=== PATIENT | male | born 1955 | race African-American/Black ===

== ENCOUNTER 2018-01-13 14:18 | Emergency (ER) | payer MEDICARE, MEDICAID ==
[~2018-01-13] VITALS: Ht 172.7 cm; Wt 65.3 kg
[~2018-01-13 14:18] MED LIST: METFORMIN HCL1000 M1 ORAL; METFORMIN HCL850 M1 ORAL; NORCO 5-325 TA1 EACH ORAL; ZOLPIDEM TARTRAT5 MG ORAL
--- NOTE | 2018-01-13 15:10 | Emergency Room Report ---
History of Present Illness General Chief Complaint: Skin Rash/Abscess Source: Patient Present Illness HPI 62 YO Male presents to the ED c/o 01/10 in severity pain, swelling, and erythema of right posterior shoulder x 2 days. He reports that he attempted to pop it himself however he was unsuccessful. Patient denies fevers or chills he reports he has a history of diabetes and takes insulin as well as metformin. Patient states that he is up-to-date with his tetanus vaccinations. Denies lesions elsewhere on the body. Allergies: Coded Allergies: No Known Allergies (Unverified , 09/22/13) Patient History Past Medical History: see triage record Past Surgical History: none Pertinent Family History: none Immunizations: UTD Reviewed Nursing Documentation: PMH: Agreed; PSxH: Agreed Nursing Documentation-PMH Past Medical History: No History, Except For Hx Cardiac Problems: No Hx Hypertension: No Hx Diabetes: Yes Hx Cancer: No Hx Gastrointestinal Problems: No Hx Neurological Problems: No Review of Systems All Other Systems: negative except mentioned in HPI Physical Exam Vital Signs Date Time Temp Pulse Resp B/P (MAP) Pulse Ox O2 Delivery O2 Flow Rate FiO2 01/13/18 14:39 98.7 76 20 144/87 98 Room Air 98.8 Sp02 EP Interpretation: reviewed, normal General Appearance: no apparent distress, alert, GCS 15, non-toxic Head: normocephalic, atraumatic ENT: hearing grossly normal, normal voice Neck: full range of motion Respiratory: chest non-tender, lungs clear, normal breath sounds, speaking full sentences Cardiovascular #1: regular rate, rhythm Musculoskeletal: back normal, gait/station normal, normal range of motion, non- tender Neurologic: alert, oriented x3, responsive, motor strength/tone normal, sensory intact, normal gait, speech normal, grossly normal Psychiatric: judgement/insight normal Skin: normal color, no rash, warm/dry, well hydrated, other - Posterior right shoulder abscess 1.5cm with palpable fluctuance, erythema and induration. Procedures Incision and Drainage Incision and Drainage : Consent: Verbal Site: Posterior right shoulder I & D Procedure: betadine prep, sterile drapes applied, sterile dressing applied, gauze wick placed Wound Location: other - Posterior right shoulder abscess 1.5cm with palpable fluctuance Wound's Depth, Shape: superficial Wound Length (cm): 1 Wound Explored: contaminated - Thick purulent d/c expressed Anesthesia: 1% Lidocaine Volume Anesthetic (ccs): 1 Splint Applied?: No Sling Applied?: No Patient Tolerated: Well Complications: None Medical Decision Making PA Attestation Dr. brown is my supervising Physician whom patient management has been discussed with. Diagnostic Impression: Primary Impression: Abscess ER Course 62 YO Male presents to the ED c/o 01/10 in severity pain, swelling, and erythema of right posterior shoulder x 2 days. He reports that he attempted to pop it himself however he was unsuccessful. Patient denies fevers or chills he reports he has a history of diabetes and takes insulin as well as metformin. Patient states that he is up-to-date with his tetanus vaccinations. Denies lesions elsewhere on the body. Ddx considered but are not limited to cellulitis, abscess, cystic acne, necrotizing fasciitis, insect bite. Vital signs: are WNL, pt. is afebrile H&PE are most consistent with Posterior right shoulder abscess 1.5cm with palpable fluctuance. ORDERS: none required at this time, the diagnosis is clinical ED INTERVENTIONS: -I & D. DISCHARGE: At this time pt. is stable for d/c to home. Will provide printed patient care instructions, and any necessary prescriptions. Care plan and follow up instructions have been discussed with the patient prior to discharge. Last Vital Signs Date Time Temp Pulse Resp B/P (MAP) Pulse Ox O2 Delivery O2 Flow Rate FiO2 01/13/18 14:39 98.7 76 20 144/87 98 Room Air 98.8 Scripts Clindamycin Hcl (CLINDAMYCIN HCL) 300 Mg Capsule 300 MG ORAL TID for 7 Days, #21 CAP Prov: Kesha Younger 01/13/18 Patient Instructions: Abscess Additional Instructions: Take medications as directed. Follow up with a Primary Care Provider in 3-5 days, even if your symptoms have resolved. --Please review list of primary care clinics, if you do not already have a primary care provider Return sooner to ED if new symptoms occur, or current symptoms become worse. - Please note that this Emergency Department Report was dictated using [employer] furnace keeper technology software, occasionally this can lead to erroneous entry secondary to interpretation by the dictation equipment. Kesha Younger January 13, 2018 15:10
[2018-01-13 15:26] VITALS: BP 144/87
[2018-01-13] MEDS ORDERED: CLINDAMYCIN HC300 MG ORAL (15:50)
[2018-01-13 16:06] VITALS: BP 144/87
== END 2018-01-13 16:15 | disposition home or self-care (01) ==
LOC: EMR 16:15
DX: L02.413 Cutaneous abscess of right upper limb (principal); E11.9 Type 2 diabetes mellitus without complications
CPT/HCPCS: 10060; 99283

== ENCOUNTER 2020-11-01 11:15 | Inpatient (IN) | payer MEDICAID, MEDICARE, OTHER ==
[~2020-11-01] VITALS: Ht 172.7 cm; Wt 63.5 kg
[~2020-11-01 11:15] MED LIST changes: +CLINDAMYCIN HC300 MG ORAL
[2020-11-01] MEDS ORDERED: Omnipaque-300 100ml vial INJ PRN (12:45)
[2020-11-01 13:24] VITALS: BP 148/66
[2020-11-01 13:40] LABS: APPEARANCE,URINE CLEAR; BILIRUBIN, URINE NEGATIVE (NEGATIVE); COLOR,URINE PALE YELLOW; GLUCOSE, URINE (UA) 4+ (NEGATIVE); KETONES,URINE NEGATIVE (NEGATIVE); LEUKOCYTE ESTERASE ,URINE NEGATIVE (NEGATIVE); NITRITE,URINE NEGATIVE (NEGATIVE); PH,URINE 5 (4.5-8.0); PROTEIN,URINE 2+ (NEGATIVE); UROBILINOGEN,URINE NORMAL MG/DL (0.0-1.0)
[2020-11-01 13:45] LABS: BASOPHILS % (AUTO) 1.3 % (0.0-2.0); EOSINOPHILS % (AUTO) 0.2 % (0.0-3.0); HEMATOCRIT 41.1 % (42.0-52.0); HEMOGLOBIN 12.7 G/DL (14.2-18.0); MEAN CORPUSCULAR VOLUME 88 FL (80-99); MONOCYTES % (AUTO) 8.9 % (1.0-10.0); NEUTROPHILS % (AUTO) 71.6 % (45.0-75.0); PLATELET COUNT 338 K/UL (150-450); RED BLOOD COUNT 4.67 M/UL (4.70-6.10); RED CELL DISTRIBUTION WIDTH 14.6 % (11.6-14.8); WHITE BLOOD COUNT 4.9 K/UL (4.8-10.8)
[2020-11-01 13:54] LABS: ANION GAP 10 mmol/L (5-15); BLOOD UREA NITROGEN 26 mg/dL (7-18); CARBON DIOXIDE 25 MMOL/L (21-32); CHLORIDE 105 MMOL/L (98-107); CREATININE 1.1 MG/DL (0.55-1.30); POTASSIUM 4.1 MMOL/L (3.5-5.1); SODIUM 140 MMOL/L (136-145)
[2020-11-01 14:05] LABS: ALANINE AMINOTRANSFERASE 143 U/L (12-78); ALBUMIN 3.6 G/DL (3.4-5.0); ALBUMIN/GLOBULIN RATIO 1.1 (1.0-2.7); ALKALINE PHOSPHATASE 69 U/L (46-116); ASPARTATE AMINO TRANSFERASE 41 U/L (15-37); BILIRUBIN,TOTAL 0.3 MG/DL (0.2-1.0); CALCIUM 9.1 MG/DL (8.5-10.1)
--- NOTE | 2020-11-01 14:44 | Emergency Room Report ---
History of Present Illness General Chief Complaint: Abdominal Pain Source: Patient (Fabiano Hernandez MD) Present Illness HPI 65-year-old male presents for evaluation. States he has been feeling short of breath on and off for a few days. Denies chest pain. Also notes left-sided abdominal pain. Sharp, 7 out of 10 radiating to the back. Has history of hypertension. States he is a diabetic and is compliant with his medications. Denies any history of kidney stones. No other aggravating relieving factors. Denies any other associated symptoms. (Fabiano Hernandez MD) Allergies: Coded Allergies: No Known Allergies (Unverified , 09/22/13) COVID-19 Screening Contact w/high risk pt: No Experienced COVID-19 symptoms?: No COVID-19 Testing performed MIDDLE STITCHER: No (Fabiano Hernandez MD) Patient History Past Medical History: DM Past Surgical History: none Pertinent Family History: none Social History: Denies: smoking, alcohol use, drug use Immunizations: UTD Reviewed Nursing Documentation: PMH: Agreed; PSxH: Agreed (Fabiano Hernandez MD) Nursing Documentation-PMH Hx Cardiac Problems: No Hx Hypertension: No Hx Diabetes: Yes Hx Cancer: No Hx Gastrointestinal Problems: No Hx Neurological Problems: No (Fabiano Hernandez MD) Review of Systems All Other Systems: negative except mentioned in HPI (Fabiano Hernandez MD) Physical Exam Vital Signs Date Time Temp Pulse Resp B/P (MAP) Pulse Ox O2 Delivery O2 Flow Rate FiO2 11/01/20 12:28 98.4 110 18 150/95 (113) 98 Room Air Sp02 EP Interpretation: reviewed, normal General Appearance: no apparent distress, alert, GCS 15, non-toxic Head: normocephalic, atraumatic Eyes: bilateral eye normal inspection, bilateral eye PERRL ENT: hearing grossly normal, normal pharynx, no angioedema, normal voice Neck: full range of motion, supple/symm/no masses Respiratory: chest non-tender, lungs clear, normal breath sounds, speaking full sentences Cardiovascular #1: regular rate, rhythm, no edema Cardiovascular #2: 2+ carotid (R), 2+ carotid (L), 2+ radial (R), 2+ radial (L), 2+ dorsalis pedis (R), 2+ dorsalis pedis (L) Gastrointestinal: normal bowel sounds, soft, non-distended, no guarding, no rebound, tenderness - L sided Rectal: deferred Genitourinary: normal inspection, no CVA tenderness Musculoskeletal: back normal, normal range of motion, gait/station normal, non- tender Neurologic: alert, motor strength/tone normal, oriented x3, sensory intact, responsive, speech normal Psychiatric: judgement/insight normal, memory normal, mood/affect normal, no suicidal/homicidal ideation Reflexes: 3+ bicep (R), 3+ bicep (L), 3+ tricep (R), 3+ tricep (L), 3+ knee (R), 3+ knee (L) Skin: no rash Lymphatic: no adenopathy (Fabiano Hernandez MD) Medical Decision Making Diagnostic Impression: Primary Impression: CHF (congestive heart failure) Additional Impressions: Pleural effusion Anasarca Laboratory Tests Test 11/01/20 13:17 White Blood Count 4.9 K/UL (4.8-10.8) Red Blood Count 4.67 M/UL (4.70-6.10) L Hemoglobin 12.7 G/DL (14.2-18.0) L Hematocrit 41.1 % (42.0-52.0) L Mean Corpuscular Volume 88 FL (80-99) Mean Corpuscular Hemoglobin 27.2 PG (27.0-31.0) Mean Corpuscular Hemoglobin Concent 30.8 G/DL (32.0-36.0) L Red Cell Distribution Width 14.6 % (11.6-14.8) Platelet Count 338 K/UL (150-450) Mean Platelet Volume 7.7 FL (6.5-10.1) Neutrophils (%) (Auto) 71.6 % (45.0-75.0) Lymphocytes (%) (Auto) 18.0 % (20.0-45.0) L Monocytes (%) (Auto) 8.9 % (1.0-10.0) Eosinophils (%) (Auto) 0.2 % (0.0-3.0) Basophils (%) (Auto) 1.3 % (0.0-2.0) Urine Color Pale yellow Urine Appearance Clear Urine pH 5 (4.5-8.0) Urine Specific [place] 1.025 (1.005-1.035) Urine Protein 2+ (NEGATIVE) H Urine Glucose (UA) 4+ (NEGATIVE) H Urine Ketones Negative (NEGATIVE) Urine Blood Negative (NEGATIVE) Urine Nitrite Negative (NEGATIVE) Urine Bilirubin Negative (NEGATIVE) Urine Urobilinogen Normal MG/DL (0.0-1.0) Urine Leukocyte Esterase Negative (NEGATIVE) Urine RBC 0 /HPF (0 - 0) Urine WBC 0-2 /HPF (0 - 0) Urine Squamous Epithelial Cells Occasional /LPF Urine Uric Acid Crystals Moderate /LPF (NONE) H Urine Bacteria Occasional /HPF (NONE) Sodium Level 140 MMOL/L (136-145) Potassium Level 4.1 MMOL/L (3.5-5.1) Chloride Level 105 MMOL/L (98-107) Carbon Dioxide Level 25 MMOL/L (21-32) Anion Gap 10 mmol/L (5-15) Blood Urea Nitrogen 26 mg/dL (7-18) H Creatinine 1.1 MG/DL (0.55-1.30) Estimat Glomerular Filtration Rate > 60 mL/min (>60) Glucose Level 197 MG/DL (74-106) H Calcium Level 9.1 MG/DL (8.5-10.1) Total Bilirubin 0.3 MG/DL (0.2-1.0) Aspartate Amino Transf (AST/SGOT) 41 U/L (15-37) H Alanine Aminotransferase (ALT/SGPT) 143 U/L (12-78) H Alkaline Phosphatase 69 U/L (46-116) Troponin I 0.023 ng/mL (0.000-0.056) Pro-B-Type Natriuretic Peptide 4308 pg/mL (0-125) H Total Protein 6.9 G/DL (6.4-8.2) Albumin 3.6 G/DL (3.4-5.0) Globulin 3.3 g/dL Albumin/Globulin Ratio 1.1 (1.0-2.7) Lipase 66 U/L (73-393) L (Fabiano Hernandez MD) ER Course Assumed care of the patient from the previous provider at approximately 1400. Please refer to initial note for full history and physical exam. Briefly, 65-year-old male complaining of abdominal pain shortness of breath. Labs x-ray consistent with CHF exacerbation which would be a new diagnosis for the patient. CT was pending at the time of signout. CT now shows large bilateral pleural effusions and anasarca. Other findings as noted in CT report. Admitted to Dr. Teresa who is the assigned hospitalist per patient healthcare plan. (Christopher Sultana MD) EKG Diagnostic Results Troponin ordered: Yes Rate: normal Rhythm: NSR ST Segments: no acute changes ASA given to the pt in ED: No (Fabiano Hernandez MD) Rhythm Strip Diag. Results EP Interpretation: yes Rhythm: NSR, no PVC's, no ectopy (Fabiano Hernandez MD) Chest X-Ray Diagnostic Results Chest X-Ray Diagnostic Results : Chest X-Ray Ordered: Yes # of Views/Limited/Complete: 1 View Indication: Shortness of Breath EP Interpretation: Yes Interpretation: no pneumothorax, other - cardiomegaly. interstitial congestion Impression: Other - chf Electronically Signed by: Electronically signed by Fabiano Hernandez MD (Fabiano Hernandez MD) CT/MRI/US Diagnostic Results CT/MRI/US Diagnostic Results : Impression Impression: Limited assessment of the GI tract, due to lack of enteric contrast administration Anasarca, with large bilateral pleural effusions, mild pulmonary edema, mild edema of the subcutaneous, abdominal and pelvic fat Colonic diverticulosis. No evidence of diverticulitis Slight gallbladder wall thickening without gallstones; suspect that this is a manifestation of the anasarca. COPD changes Cardiomegaly Unchanged presumed benign calcified right basilar lung nodule Dictated By: Jim Babcock MD Electronically Signed By:Jim Babcock MD Signed Date/Time11/01/20 1526 CC: Fabinao Hernandez MD (Christopher Sultana MD) Last Vital Signs Date Time Temp Pulse Resp B/P (MAP) Pulse Ox O2 Delivery O2 Flow Rate FiO2 11/01/20 13:24 16 Room Air 11/01/20 13:24 148/66 11/01/20 12:28 98.4 110 98 (Fabiano Hernandez MD) Disposition: ADMITTED INPATIENT Condition: Serious Referrals: [facility],REFERRING (PCP) Fabiano Hernandez MD Nov 01, 2020 14:44 Christopher Sultana MD Nov 01, 2020 15:37
--- NOTE | 2020-11-01 15:30 | Diagnostic Imaging Report ---
Clinical Indication: Left flank pain Technique: No oral contrast utilized, per emergency room physician request IV administration nonionic contrast. Venous phase spiral acquisition obtained through the abdomen and pelvis. Multiplanar reconstructions were generated. Total dose length product 174 mGycm. CTDIvol(s) 3 mGy. Dose reduction achieved using automated exposure control Comparison: none Findings: There is mild anasarca, with diffuse mild edema of the subcutaneous and abdominal fat as well as large bilateral pleural effusions and evidence of some pulmonary edema. This is a new finding since previous study. Lack of enteric contrast limits assessment of the GI tract. The appendix is normal. There are colonic diverticula. There is evidence of some sigmoid circular muscle hypertrophy. No small bowel distention. No free or loculated intraperitoneal gas or fluid is evident. The distal esophagus, stomach, duodenum are unremarkable. There is a small complex ventral hernia that contains only fat The liver is unremarkable. The gallbladder demonstrates slight gallbladder wall edema. The bile ducts are normal in caliber. The pancreatic duct is mildly ectatic. The pancreas is otherwise unremarkable. The spleen, adrenals, kidneys are unremarkable. No retroperitoneal or mesenteric mass or adenopathy. No pelvic mass or adenopathy. As mentioned earlier, there were large bilateral pleural effusions, right greater than left. There are bilateral mostly perihilar infiltrates versus edema, as well as compressive atelectasis of a significant portion of both lower lobes and some small bullae. The heart is enlarged, more so than on the prior study.. The bones are unremarkable for age. Impression: Limited assessment of the GI tract, due to lack of enteric contrast administration Anasarca, with large bilateral pleural effusions, mild pulmonary edema, mild edema of the subcutaneous, abdominal and pelvic fat Colonic diverticulosis. No evidence of diverticulitis Slight gallbladder wall thickening without gallstones; suspect that this is a manifestation of the anasarca. COPD changes Cardiomegaly Unchanged presumed benign calcified right basilar lung nodule The CT scanner at [facility] is accredited by the [employer] and the scans are performed using protocols designed to limit radiation exposure to as low as reasonably achievable to attain images of sufficient resolution adequate for diagnostic evaluation.
--- NOTE | 2020-11-01 18:40 | Diagnostic Imaging Report ---
Indication: Chest pain Technique: One view of the chest Comparison: 07/10/2015 Findings: The heart is borderline enlarged. There is bilateral interstitial and airspace edema and bilateral pleural effusions. Impression: Cardiomegaly Bilateral interstitial and airspace edema and bilateral pleural effusions
[2020-11-01] MEDS: Aspirin Baby 81mg ORAL SCH (19:30)
[2020-11-01] MEDS: Losartan 25mg tab ORAL SCH (19:30)
[2020-11-01] MEDS ORDERED: Nitroglycerin Subl 0.4mg tab SL PRN (19:30)
[2020-11-01] MEDS ORDERED: Milk of Magnesia 30ml Ud ORAL PRN (19:30)
[2020-11-01] MEDS ORDERED: Zolpidem 5mg tab ORAL PRN (19:30)
[2020-11-01] MEDS: Spironolactone 25mg tab ORAL SCH (19:30)
--- NOTE | 2020-11-01 19:30 | NUR ---
ED Nurse Note: pt came in with complaints of abdominal pain/sob, AOx4 ambulatory, xray shows CHF exacerbation, pt admitted to Tele unit report given to RN Ernestina, patient belongings sent with him to floor refused offer to put in hospital safe, belongings form filled and signed by patient,
--- NOTE | 2020-11-01 22:00 | NUR ---
NURSE NOTES: Received patient alert oriented from ED via stretcher accompanied by the nurse. patient walk to bed and place on the monitor. assessment initiated. patient show no signs of distress. no chest pain. patient is diabetic, will check his blood glucose. patient belongings at bedside. discussed plan of care. orient patient to room. call ramirez within reach , will continue to monitor.
[2020-11-01] MEDS: Carvedilol 6.25mg Tab ORAL SCH (22:45)
[2020-11-01] MEDS: Heparin 5000 units/ml inj SUBQ SCH (22:53)
[2020-11-01] MEDS: NovoLOG Insulin Flexpen SUBQ SCH (23:15)
[2020-11-02] VITALS: BP 138/94
[2020-11-02 04:00] VITALS: BP 130/89
[2020-11-02] MEDS: NovoLOG Insulin Flexpen SUBQ SCH ×4 (06:11→20:39)
--- NOTE | 2020-11-02 07:28 | NUR ---
NURSE HAND-OFF REPORT: Important Events on Shift:[] Patient Status: [] Diet: [] Pending Orders: [] Pending Results/Labs:[] Pending MD notification:[] Latest Vital Signs: Temperature 97.4 , Pulse 100 , B/P 130 /89 , Respiratory Rate 20 , O2 SAT 92 , Room Air, O2 Flow Rate . Vital Sign Comment: [] EKG Rhythm: Sinus Tachycardia Rhythm change?: N MD Notified?: - MD Response: Latest Wiley Fall Score: 0 Fall Risk: Low Risk Safety Measures: Call light Within Reach, Bed Alarm , Side Rails Side Rails x2, Bed position . Fall Precautions: Report given to [].
[2020-11-02 07:42] LABS: BASOPHILS % (AUTO) 1.1 % (0.0-2.0); EOSINOPHILS % (AUTO) 0.5 % (0.0-3.0); HEMATOCRIT 41.9 % (42.0-52.0); HEMOGLOBIN 13.3 G/DL (14.2-18.0); LYMPHOCYTES % (AUTO) 20.6 % (20.0-45.0); MEAN CORPUSCULAR VOLUME 87 FL (80-99); MONOCYTES % (AUTO) 9.5 % (1.0-10.0); NEUTROPHILS % (AUTO) 68.4 % (45.0-75.0); PLATELET COUNT 357 K/UL (150-450); RED BLOOD COUNT 4.82 M/UL (4.70-6.10); RED CELL DISTRIBUTION WIDTH 14.7 % (11.6-14.8); WHITE BLOOD COUNT 5.7 K/UL (4.8-10.8)
[2020-11-02 08:00] VITALS: BP 140/91
[2020-11-02 08:06] LABS: BLOOD UREA NITROGEN 32 mg/dL (7-18); CHLORIDE 103 MMOL/L (98-107); CHOLESTEROL 208 MG/DL (< 200); CREATININE 1.3 MG/DL (0.55-1.30); HDL CHOLESTEROL 49 MG/DL (40-60); SODIUM 140 MMOL/L (136-145); TRIGLYCERIDES 61 MG/DL (30-150)
[2020-11-02 08:11] LABS: CALCIUM 9.6 MG/DL (8.5-10.1); CARBON DIOXIDE 27 MMOL/L (21-32)
[2020-11-02 08:15] LABS: ANION GAP 10 mmol/L (5-15)
[2020-11-02] MEDS: Losartan 25mg tab ORAL SCH ×2 (08:56→18:07)
[2020-11-02] MEDS: Carvedilol 6.25mg Tab ORAL SCH (08:56)
[2020-11-02] MEDS: Aspirin Baby 81mg ORAL SCH (08:56)
[2020-11-02] MEDS: Heparin 5000 units/ml inj SUBQ SCH ×2 (08:58→20:39)
[2020-11-02] MEDS: Spironolactone 25mg tab ORAL SCH (09:00)
[2020-11-02 12:00] VITALS: BP 115/82
[2020-11-02] MEDS ORDERED: Insulin NPH SUBQ SCH (14:00)
--- NOTE | 2020-11-02 14:44 | History and Physical Report ---
DATE OF ADMISSION: 11/01/2020 CHIEF COMPLAINT AND REASON FOR HOSPITALIZATION: The patient is a 65-year-old man admitted with shortness of breath and congestive heart failure, vague abdominal pain. There is a history of diabetes since the . He is not aware of heart disease or congestive heart failure but he appeared to be in congestive heart failure. An echo showed LV ejection fraction 20% to 25%, moderate mitral regurgitation, aortic regurgitation, trace to mild tricuspid regurgitation, elevated right ventricular systolic pressure. HABITS: He is a former marijuana user, says he no longer uses. He denies smoking, alcohol, or street drugs at this time. PAST SURGICAL HISTORY: Cataracts in both eyes. HOME MEDICATIONS: Include Lantus 30 units every morning, metformin 850 t.i.d. SYSTEM REVIEW: HEAD, EYES, EARS, NOSE, AND THROAT: There is mild decreased visual acuity. Hearing is good. ENDOCRINE: Diabetes as above. No known thyroid disease. PULMONARY: No history of asthma, TB, or chronic cough. CARDIAC: See history of present illness. GASTROINTESTINAL: No ulcers or GI bleeding. GENITOURINARY: No dysuria, hematuria, or kidney stones. NEUROLOGIC: No CVA or seizures. PHYSICAL EXAMINATION: GENERAL: The patient is alert, well-developed man, in no acute distress, somewhat thin, BMI 21.3. VITAL SIGNS: Temperature 97.2, respiratory rate 18, blood pressure 140/91, pulse ox 98. HEAD, EYES, EARS, NOSE, AND THROAT: Sclerae are nonicteric. Ocular motions intact in all directions. Oral mucosa moist. NECK: No adenopathy or thyroid enlargement. LUNGS: Clear. Decreased breath sounds at the bases. HEART: Rhythm is regular. There is an apical S4. I hear no murmur. ABDOMEN: Soft without organomegaly or masses. No tenderness. EXTREMITIES: No edema, cyanosis, or clubbing. PERTINENT LABORATORY DATA: White count 5.7, hemoglobin of 13.3. Electrolytes normal. BUN 26, creatinine 1.1, glucose . BNP of 4308. Cholesterol 208. TSH 3.155. Troponin 0.023 and 0.027. IMPRESSION: 1. Congestive heart failure, acute on chronic with systolic and diastolic dysfunction. 2. Insulin-dependent diabetes. 3. Mild hypercholesterolemia. 4. Dipstick positive for proteinuria, likely diabetic nephropathy. PLAN: The patient started on diuretics, ARB, Coreg. We will observe with diuresis his clinical course, monitor his diabetes. We will get cardiology opinion. Gabriel Teresa M.D. DR: Kumar JOB#: [id number] CC:
--- NOTE | 2020-11-02 15:40 | Cardiology Report ---
APPROVED REPORT EXAM: Two-dimensional and M-mode echocardiogram with Doppler and color Doppler. INDICATION AMI M-Mode DIMENSIONS IVSd1.1 (0.7-1.1cm)Left Atrium (MM)3.9 (1.6-4.0cm) LVDd6.1 (3.5-5.6cm)Aortic Root3.5 (2.0-3.7cm) PWd1.2 (0.7-1.1cm)Aortic Cusp Exc.2.1 (1.5-2.0cm) IVSs1.1 cmEPSS3.0 (>1.0cm) LVDs6.2 (2.5-4.0cm) PWs1.6 cm <Conclusion> Moderate left ventricular enlargement. Severe global LV hypokinesis Left ventricular ejection fraction estimated to be 20-25 %. No left ventricular hypertrophy. Small posterior pericardial effusion. Mild left atrial enlargement. Right cardiac chamber sizes are within normal limits. Focal aortic valve sclerosis with adequate cusp excursion. Thickened mitral valve leaflets with normal excursion. Mitral annulus and aortic root calcification. Pulmonic valve not well visualized. Normal tricuspid valve structure. IVC at normal size and collapsing with respiration. A color flow and spectral Doppler study was performed and revealed: Trace aortic regurgitation. Moderate mitral regurgitation. Trace to mild tricuspid regurgitation. Tricuspid systolic velocities suggests peak right ventricular systolic pressure of 31 mmHg.
--- NOTE | 2020-11-02 15:47 | Cardiology Report ---
APPROVED REPORT EKG Measurement Heart [id number] <Conclusion> Sinus rhythm with occasional premature ventricular complexes Possible Left atrial enlargement ST & T wave abnormality, consider lateral ischemia Prolonged QT Abnormal ECG
[2020-11-02 16:00] VITALS: BP 120/78
[2020-11-02] MEDS ORDERED: empagliflozin PO (16:30)
[2020-11-02] MEDS ORDERED: GABAPENTIN400 MG ORAL (16:30)
[2020-11-02] MEDS ORDERED: ATORVASTATIN CA20 MG ORAL (16:30)
[2020-11-02] MEDS ORDERED: ASPIRIN EC81 MG ORAL (16:30)
[2020-11-02] MEDS ORDERED: LANTUS SOL100 UNIT/1 SUBQ (16:30)
--- NOTE | 2020-11-02 19:12 | Cardiology Progress Note ---
Subjective DATE OF SERVICE: Nov 02, 2020 Patient notes less SOB today. No Chest Pain Results of 2D Echo discussed; patient states he has never been told of having a weak heart. 2D Echo: LVEF 25% with moderate MR. Objective Last 24 Hour Vital Signs Date Time Temp Pulse Resp B/P (MAP) Pulse Ox O2 Delivery O2 Flow Rate FiO2 11/02/20 18:07 120/78 11/02/20 16:00 92 11/02/20 16:00 97.2 97 20 120/78 (92) 98 11/02/20 12:00 102 11/02/20 12:00 97.5 98 20 115/82 (93) 97 11/02/20 09:00 Room Air 11/02/20 08:56 140/91 11/02/20 08:56 99 140/91 11/02/20 08:00 97.2 100 18 140/91 (107) 98 11/02/20 08:00 99 11/02/20 04:00 97.4 100 20 130/89 (103) 92 11/02/20 04:00 103 11/02/20 00:00 98.6 109 20 138/94 (109) 92 11/02/20 00:00 118 11/01/20 23:00 Room Air 11/01/20 22:45 109 138/94 11/01/20 19:30 148/66 HEENT: normal ENT inspection LUNGS: lungs clear bilaterally CARDIAC: normal rate, regular rhythm, normal S1 and S2, systolic murmur - 2/6 systolic apical murmur, gallop/S4, other - Elev JVP ABDOMEN: normal bowel sounds, non tender, soft, no organomegaly EXTREMITIES: normal range of motion, trace edema Laboratory Tests Test 11/02/20 07:02 11/02/20 11:31 11/02/20 15:55 White Blood Count 5.7 K/UL (4.8-10.8) Red Blood Count 4.82 M/UL (4.70-6.10) Hemoglobin 13.3 G/DL (14.2-18.0) L Hematocrit 41.9 % (42.0-52.0) L Mean Corpuscular Volume 87 FL (80-99) Mean Corpuscular Hemoglobin 27.6 PG (27.0-31.0) Mean Corpuscular Hemoglobin Concent 31.7 G/DL (32.0-36.0) L Red Cell Distribution Width 14.7 % (11.6-14.8) Platelet Count 357 K/UL (150-450) Mean Platelet Volume 6.6 FL (6.5-10.1) Neutrophils (%) (Auto) 68.4 % (45.0-75.0) Lymphocytes (%) (Auto) 20.6 % (20.0-45.0) Monocytes (%) (Auto) 9.5 % (1.0-10.0) Eosinophils (%) (Auto) 0.5 % (0.0-3.0) Basophils (%) (Auto) 1.1 % (0.0-2.0) Sodium Level 140 MMOL/L (136-145) Potassium Level 4.0 MMOL/L (3.5-5.1) Chloride Level 103 MMOL/L (98-107) Carbon Dioxide Level 27 MMOL/L (21-32) Anion Gap 10 mmol/L (5-15) Blood Urea Nitrogen 32 mg/dL (7-18) H Creatinine 1.3 MG/DL (0.55-1.30) Estimat Glomerular Filtration Rate > 60 mL/min (>60) Glucose Level 192 MG/DL (74-106) H Calcium Level 9.6 MG/DL (8.5-10.1) Magnesium Level 1.9 MG/DL (1.8-2.4) Troponin I 0.027 ng/mL (0.000-0.056) Triglycerides Level 61 MG/DL (30-150) Cholesterol Level 208 MG/DL (< 200) H LDL Cholesterol 140 mg/dL (<100) H HDL Cholesterol 49 MG/DL (40-60) Cholesterol/HDL Ratio 4.2 (3.3-4.4) Thyroid Stimulating Hormone (TSH) 3.155 uiU/mL (0.358-3.740) POC Whole Blood Glucose 220 MG/DL (74-106) H 244 MG/DL (74-106) H Microbiology Date/Time Source Procedure Growth Status 11/01/20 15:54 Nasopharynx SARS-CoV-2 Antigen (Rapid)([facility]) - Final Complete Assessment/Plan Assessment/Plan Acute systolic CHF Hypertensive cardiomyopathy Possible component of ischemia NIDDM Diuresis Maximize ACEi rx Add beta roslyn DVT prophylaxis Myocardial perfusion scan as outpatient as part of work up for reversible causes of cardiomyopathy. Fredis Welch MD Nov 02, 2020 19:12
--- NOTE | 2020-11-02 19:45 | NUR ---
NURSE NOTES: Received report from TUYET Zapien. Pt is awake, A/Ox4, no signs of acute distress. SR on clinical research monitor. Respirations are even and unlabored, currently on RA. No complaints of pain. R FA 22g is intact and asymptomatic. Pt steady on feet. Side rails x2, bed locked and in lowest position, call light within reach. Will continue plan of care. Will continue to monitor.
[2020-11-02 20:00] VITALS: BP 111/70
--- NOTE | 2020-11-02 20:29 | Consultation ---
DATE OF CONSULTATION: 11/01/2020 CARDIOLOGY CONSULTATION CONSULTING PHYSICIAN: Fredis Welch MD REFERRING PHYSICIAN: Gabriel Teresa MD REASON FOR CONSULTATION: Acute congestive heart failure. HISTORY OF PRESENT ILLNESS: This is a 65-year-old male with no prior known history of cardiac disease. He does have a known history of diabetes mellitus however and possibly hypertension. He presented to the emergency room earlier this evening with shortness of breath, some difficulty sleeping, and mild abdominal pain. He denied chest pain or palpitations or any recent respiratory condition/illness. PAST MEDICAL HISTORY: Otherwise unremarkable. ALLERGIES: None known. MEDICATIONS: Reviewed. SOCIAL HISTORY: Nonsmoker. No alcohol or substance abuse. REVIEW OF SYSTEMS: No COVID-19 exposures. No seizures. No history of stroke. No known history of thyroid impairment. Does not know cholesterol parameters. No change in bowel habits. No history of asthma or abnormal blood clotting. No history of rheumatic heart disease, heart attack, or irregular heartbeats. No rheumatic fever. PHYSICAL EXAMINATION: VITAL SIGNS: Blood pressure 150/95, heart rate 110, respirations 18, afebrile, oxygen saturation on room air 98%. HEENT: Male pattern balding. Conjunctivae pink. Sclerae are anicteric. Oropharynx clear. NECK: Supple. Jugular venous pressure elevated to the jaw. LUNGS: With bilateral rales. CARDIAC: Regular rhythm and rate. Normal S1, S2. A 2/6 systolic murmur at apex. Point of maximum pulse is laterally displaced. Slightly diffuse. ABDOMEN: Soft. No hepatomegaly. EXTREMITIES: Trace edema. LABORATORY DATA: White count 4.9, hemoglobin 12.7. Urinalysis, no active sediment. Sodium 140, potassium 4.1, bicarb 25, BUN 26, creatinine 1.1, glucose 197. Troponin 0.023. Pro-natriuretic peptide over 4300. EKG revealing sinus rhythm, nonspecific ST changes. Chest x-ray, cardiomegaly and pulmonary venous congestion. IMPRESSION: 1. Acute on chronic congestive heart failure. 2. Hypertension, uncontrolled. 3. Type 2 diabetes mellitus. PLAN: 1. Cardiac monitoring. 2. DVT prophylaxis. 3. Echocardiogram. 4. Diuresis with intravenous loop diuretic. 5. Initiation of beta-roslyn and angiotensin-converting enzyme inhibitor therapy or ARB. 6. Empiric anti-platelet therapy for now. 7. Check lipid panel and thyroid function. 8. Further recommendations will follow based on results of preliminary diagnostic workup. Fredis Welch M.D. DR: BAN JOB#: [id number] CC:
[2020-11-02] MEDS: Carvedilol 12.5mg tab ORAL SCH (20:38)
--- NOTE | 2020-11-02 21:16 | NUR ---
NURSE NOTES: Fingerstick 63, then 73 on second try. No s/s of hypoglycemia, no complaints from pt. Pt drank about 4ox of orange juice. Will continue to monitor.
[2020-11-03] VITALS: BP 123/81
[2020-11-03 04:00] VITALS: BP 119/78
[2020-11-03] MEDS: NovoLOG Insulin Flexpen SUBQ SCH ×2 (05:35→11:30)
--- NOTE | 2020-11-03 06:57 | NUR ---
NURSE HAND-OFF REPORT: Important Events on Shift:[No acute events] Patient Status: [Stable] Diet: [CCHO] Pending Orders: [] Pending Results/Labs:[] Pending MD notification:[] Latest Vital Signs: Temperature 98.2 , Pulse 87 , B/P 119 /78 , Respiratory Rate 18 , O2 SAT 97 , Room Air, O2 Flow Rate . Vital Sign Comment: [Stable] EKG Rhythm: Sinus Rhythm Rhythm change?: N MD Notified?: - MD Response: Latest Wiley Fall Score: 20 Fall Risk: Low Risk Safety Measures: Call light Within Reach, Bed Alarm Zone 1, Side Rails Side Rails x2, Bed position Low and Locked. Fall Precautions: Patient Fall Education Report given to [TUYET Zapien].
[2020-11-03 06:58] LABS: ANION GAP 9 mmol/L (5-15); BLOOD UREA NITROGEN 31 mg/dL (7-18); CALCIUM 9.3 MG/DL (8.5-10.1); CARBON DIOXIDE 27 MMOL/L (21-32); CHLORIDE 105 MMOL/L (98-107); CREATININE 1.1 MG/DL (0.55-1.30); POTASSIUM 3.7 MMOL/L (3.5-5.1); SODIUM 141 MMOL/L (136-145)
[2020-11-03 08:00] VITALS: BP 131/88
[2020-11-03] MEDS ORDERED: Levemir Flexpen SUBQ SCH (09:00)
[2020-11-03] MEDS: Aspirin Baby 81mg ORAL SCH (09:19)
[2020-11-03] MEDS: Spironolactone 25mg tab ORAL SCH (09:20)
[2020-11-03] MEDS: Losartan 25mg tab ORAL SCH (09:20)
[2020-11-03] MEDS: Carvedilol 12.5mg tab ORAL SCH (09:20)
[2020-11-03] MEDS: Heparin 5000 units/ml inj SUBQ SCH (09:24)
[2020-11-03 12:00] VITALS: BP 130/98
--- NOTE | 2020-11-03 13:26 | NUR ---
RD ASSESSMENT & RECOMMENDATIONS SEE CARE ACTIVITY FOR COMPLETE ASSESSMENT DAILY ESTIMATED NEEDS: Needs based on Cardiac, DM 62.5kg 25-30 kcals/kg 5825-8546 total kcals 1-1.5 g protein/kg 63-94 g total protein Fluid per MD, on lasix NUTRITION DIAGNOSIS: Decreased sodium needs r/t cardiac history as evidenced by elev BP(130/98), elev BNP(3826), on lasix. CURRENT DIET:[facility] MED/ Low Na PO DIET RECOMMENDATIONS: [facility] MED/ LOW NA diet ADDITIONAL RECOMMENDATIONS: 1) Consider lowering levemir w/ hypoglycemic events Encourage pm snack to prevent am hypoglycemia 2) Check lytes on lasix, replete as needed 3) Calibrated daily wts
--- NOTE | 2020-11-03 13:33 | NUR ---
[employer] FAXED TO [facility] #[phone] fax# [phone]
[2020-11-03] MEDS ORDERED: LOSARTAN POTASS25 MG ORAL (14:45)
[2020-11-03] MEDS ORDERED: COREG12.5 MG ORAL (14:45)
[2020-11-03] MEDS ORDERED: FUROSEMIDE40 MG ORAL (14:45)
[2020-11-03] MEDS ORDERED: SPIRONOLACTONE25 MG ORAL (14:45)
--- NOTE | 2020-11-03 16:13 | NUR ---
discharge packet reviewed with patient
--- NOTE | 2020-11-03 19:44 | Discharge Summary ---
DATE OF ADMISSION: 11/01/2020 DATE OF DISCHARGE: 11/03/2020 PERTINENT HISTORY: The patient presents with shortness of breath and congestive heart failure. There is a history of insulin-dependent diabetes. PERTINENT PHYSICAL FINDINGS: LUNGS: On my exam, lungs were clear. Decreased breath sounds at the bases. HEART: Regular rhythm. Apical S4. ABDOMEN: Soft. EXTREMITIES: No edema. COURSE IN THE HOSPITAL: The patient's chest x-ray with evidence of CHF. He was diuresed. He had an echocardiogram showing a low ejection fraction and moderate mitral regurgitation. His insulin was monitored and was stable. He had a good diuresis and at time of discharge he had no longer shortness of breath. Vital signs were stable and he had no edema. He was instructed regarding medications and he was discharged home in stable condition. FINAL DIAGNOSES: 1. Congestive heart failure, acute on chronic with systolic dysfunction. 2. Mitral regurgitation. 3. 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 DISCHARGE DISPOSITION: On a low-salt diabetic diet. Carvedilol 12.5 mg twice a day, losartan 100 mg daily, spironolactone 25 mg daily, Lasix 40 mg twice a day plus his home medicines, which include aspirin 81 mg daily, atorvastatin 20 mg daily, empagliflozin 25 mg daily, gabapentin 300 mg b.i.d., Lantus 25 units daily, and metformin 850 mg twice a day. He is instructed to follow up with his primary care physician, he is not on staff in this hospital, within a week, and to take a low-salt diabetic diet. Gabriel Teresa M.D. DR: DENNIS JOB#: [id number] CC:
--- NOTE | 2020-11-04 01:16 | Cardiology Progress Note ---
Subjective DATE OF SERVICE: Nov 03, 2020 Patient notes no SOB today. No Chest Pain Results of 2D Echo discussed yesterday; patient stated he has never been told of having a weak heart. 2D Echo: LVEF 25% with moderate MR. Objective Last 24 Hour Vital Signs Date Time Temp Pulse Resp B/P (MAP) Pulse Ox O2 Delivery O2 Flow Rate FiO2 11/03/20 12:00 85 11/03/20 12:00 98.2 69 18 130/98 (109) 96 11/03/20 09:20 101 131/88 11/03/20 09:20 131/88 11/03/20 09:00 Room Air 11/03/20 08:00 101 11/03/20 08:00 98.1 101 18 131/88 (102) 98 11/03/20 04:00 83 11/03/20 04:00 98.2 87 18 119/78 (92) 97 HEENT: normal ENT inspection LUNGS: lungs clear bilaterally CARDIAC: normal rate, regular rhythm, normal S1 and S2, systolic murmur - 2/6 systolic apical murmur, gallop/S4, other - Elev JVP ABDOMEN: normal bowel sounds, non tender, soft, no organomegaly EXTREMITIES: normal range of motion, trace edema Laboratory Tests Test 11/03/20 05:29 11/03/20 06:25 POC Whole Blood Glucose 85 MG/DL (74-106) Sodium Level 141 MMOL/L (136-145) Potassium Level 3.7 MMOL/L (3.5-5.1) Chloride Level 105 MMOL/L (98-107) Carbon Dioxide Level 27 MMOL/L (21-32) Anion Gap 9 mmol/L (5-15) Blood Urea Nitrogen 31 mg/dL (7-18) H Creatinine 1.1 MG/DL (0.55-1.30) Estimat Glomerular Filtration Rate > 60 mL/min (>60) Glucose Level 85 MG/DL (74-106) # Calcium Level 9.3 MG/DL (8.5-10.1) Magnesium Level 1.6 MG/DL (1.8-2.4) L Troponin I 0.019 ng/mL (0.000-0.056) Pro-B-Type Natriuretic Peptide 3826 pg/mL (0-125) H Microbiology Date/Time Source Procedure Growth Status 3/1/21 15:54 Nasopharynx SARS-CoV-2 Antigen (Rapid)([facility]) - Final Complete Assessment/Plan Assessment/Plan Acute systolic CHF Hypertensive cardiomyopathy Possible component of ischemia NIDDM Diuresis - maintenance oral dose Maximized ACEi rx Continue beta roslyn Myocardial perfusion scan as outpatient as part of work up for reversible causes of cardiomyopathy. Salt and fluid restriction discussed Fredis Welch MD Nov 04, 2020 01:16
== END 2020-11-03 17:40 | disposition home or self-care (01) | DRG 293 ==
LOC: EMR 12:50 → 2E 18:07 → EDBEDREQ 20:34
DX: I11.0 Hypertensive heart disease with heart failure (principal); I50.23 Acute on chronic systolic (congestive) heart failure; E11.21 Type 2 diabetes mellitus with diabetic nephropathy; I43 Cardiomyopathy in diseases classified elsewhere; Z79.4 Long term (current) use of insulin; I34.0 Nonrheumatic mitral (valve) insufficiency; I11.9 Hypertensive heart disease without heart failure; I35.1 Nonrheumatic aortic (valve) insufficiency; E78.00 Pure hypercholesterolemia, unspecified
CPT/HCPCS: 36415; 71045; 74177; 80048; 80053; 80061; 81003; 82962; 83690; 83735; 83880; 84443; 84484; 85025; 93005; 93306; 99285; J1815; S5561